=== PATIENT | male | born 1980 ===

== ENCOUNTER → 2022-11-11 | Outpatient (CLI) | payer BC ==
[2022-11-13 04:07] LABS: CHLAMYDIA TRACHOMATIS, NAA Negative (Negative)
[2022-11-15 06:12] LABS: HSV-1 DNA Negative (Negative); HSV-2 DNA Positive (Negative)
== END | disposition home or self-care (01) ==
LOC: LAB 16:02 → LAB SHORT 16:02
PROVIDERS: Nurse Practitioner Family
DX: N34.1 Nonspecific urethritis (principal); R30.0 Dysuria
CPT/HCPCS: 87086; 87491; 87529; 87591